=== PATIENT | female | born 1985 | race Caucasian/White ===

== ENCOUNTER 2017-01-15 15:49 | Inpatient (IN) | payer MEDICAID ==
[~2017-01-15] VITALS: Ht 165.1 cm; Wt 83.6 kg
[2017-01-29] VITALS (33 sets, daily range): BP systolic 100–147; BP diastolic 7–89; PULSE 79–114; TEMP 97.5–98
[2017-01-29] MEDS ORDERED: PRENATAL PO (07:27)
[2017-01-29 08:34] LABS: BASO # 0.1 (0.0-0.2); BASO % 0.5 % (0.0-2.0); EOS # 0.1 (0.0-0.7); EOS % 0.9 % (0-4.0); GRAN # 9.3 (1.4-6.5); GRAN % 71.5 % (42.2-75.2); HEMATOCRIT 38.6 % (37.0-47.0); HEMOGLOBIN 13.2 g/dl (12.5-16.0); LYMPH # 2.3 (1.2-3.4); LYMPH % 17.7 % (20.0-51.0); MEAN CELL VOLUME 92 fl (80.0-100.0); MEAN CORPUSCULAR HEMOGLOBIN 31 pg (27.0-31.0); MEAN CORPUSCULAR HGB CONC 34 g/dl (33.0-37.0); MEAN PLATELET VOLUME 11.5 fl (7.4-10.4); MONO # 1.1 (0.1-0.6); MONO % 8.6 % (1.7-9.3); PLATELET COUNT 225 K/mm3 (130-400); RED BLOOD COUNT 4.22 M/mm3 (4.10-5.30)
[2017-01-30 00:30] VITALS: BP 118/76; PULSE 85; TEMP 98
[2017-01-30 05:00] VITALS: BP 124/84; PULSE 80; TEMP 97.5
[2017-01-30 07:31] LABS: HEMATOCRIT 34.8 % (37.0-47.0); HEMOGLOBIN 11.9 g/dl (12.5-16.0)
[2017-01-30 08:00] VITALS: BP 124/84; PULSE 93; TEMP 97.8
[2017-01-30] MEDS ORDERED: IBU600 MG PO (09:00)
[2017-01-30] MEDS ORDERED: PERCOCET 325 MG1 TA2 PO (09:01)
== END 2017-01-30 17:10 | disposition home or self-care (01) | DRG 775 ==
LOC: OB 01-29 07:01 → LDR 01-29 07:01 → OB 01-29 15:44 → EDSTATUS 02-15 15:43 → OB 02-15 15:44 → LDRO 02-15 15:49
PROVIDERS: Obstetrics & Gynecology
PROC: 10E0XZZ Delivery of Products of Conception, External Approach (ICD-10-PCS; principal; 2017-01-29)
PROC: 3E033VJ Introduction of Other Hormone into Peripheral Vein, Percutaneous Approach (ICD-10-PCS; 2017-01-29)
PROC: 0UQMXZZ Repair Vulva, External Approach (ICD-10-PCS; 2017-01-29)
DX: O36.5930 Maternal care for other known or suspected poor fetal growth, third trimester, not applicable or unspecified (principal); O36.0130 Maternal care for anti-D [Rh] antibodies, third trimester, not applicable or unspecified; O69.81X0 Labor and delivery complicated by cord around neck, without compression, not applicable or unspecified; O71.82 Other specified trauma to perineum and vulva; O76 Abnormality in fetal heart rate and rhythm complicating labor and delivery; Z3A.37 37 weeks gestation of pregnancy; Z37.0 Single live birth
CPT/HCPCS: J2590; J2795; J7120